=== PATIENT | female | born 1985 | race Caucasian/White ===

== ENCOUNTER 2019-04-29 17:11 | Emergency (ER) | payer BC ==
[~2019-04-29] VITALS: Ht 162.6 cm; Wt 110.0 kg
[~2019-04-29 17:11] MED LIST: PROM5SYR2 PO
[2019-04-29 17:12] VITALS: BP 140/78; PULSE 89; RESP 18; Ht 162.6 cm; Wt 110.0 kg
== END 2019-04-29 18:50 | disposition home or self-care (01) ==
LOC: FTE 17:11
DX: J06.9 Acute upper respiratory infection, unspecified (principal)
CPT/HCPCS: 99283